=== PATIENT | male | born 1965 | race Caucasian/White ===

== ENCOUNTER 2017-11-25 17:24 | Emergency (ER) | payer BC ==
--- NOTE | 2017-11-25 18:35 | Emergency Department Record ---
History of Present Illness - General Chief Complaint: Animal Bite Stated Complaint: LACERATION Time Seen by Provider: 11/25/17 18:02 Source: Patient Mode of Arrival: Ambulatory Limitations: No limitations - History of Present Illness Initial Comments: pt was bitten by a cat on r index finger. pt is already on abx for cat bite last week. he still has 10 days left of abx. his tetnus is utd. the lac is bleeding heavily MD Complaint: Animal bite Onset/Timin -: Minutes(s) Left: Hand Animal: Cat Description: Household pet, Immunizations UTD Mechanism: Bite, Scratch, Contact with mucous membranes Pain Description: Sharp Severity scale (1-10): 2 Associated Symptoms: Bleeding Treatments Prior to Arrival: Pressure - Related Data Patient Tetanus UTD (within 5 yrs): Yes Home Medications Medication Instructions Recorded Confirmed Last Taken Atenolol 100 mg PO DAILY 11/25/17 11/25/17 11/25/17 Olmesartan Medoxomil [Benicar] 40 mg PO DAILY 11/25/17 11/25/17 11/25/17 Olmesartan/Hydrochlorothiazide 1 each PO DAILY 11/25/17 11/25/17 11/25/17 [Olmesartan-Hctz 40-12.5 mg Tab] Allergies Allergy/AdvReac Type Severity Reaction Status Date / Time No Known Drug Allergies Allergy Verified 11/25/17 17:29 Travel Screening - Travel/Exposure Within Last 30 Days Have you traveled within the last 30 days?: No Review of Systems Reviewed: No additional complaints except as noted below Constitutional: Reports: As per HPI. Denies: Chills, Fever, Malaise, Night sweats, Weakness, Weight change Eyes: Reports: As per HPI. Denies: Eye discharge, Eye pain, Photophobia, Vision change ENT: Reports: As per HPI. Denies: Congestion, Dental pain, Ear pain, Epistaxis , Hearing loss, Throat pain Respiratory: Reports: As per HPI. Denies: Cough, Dyspnea, Hemoptysis, Stridor, Wheezes Cardiovascular: Reports: As per HPI. Denies: Arrhythmia, Chest pain, Dyspnea on exertion, Edema, Murmurs, Orthopnea, Palpitations, Paroxysmal nocturnal dyspnea, Rheumatic Fever, Syncope Endocrine: Reports: As per HPI. Denies: Fatigue, Heat or cold intolerance, Polydipsia, Polyuria Gastrointestinal: Reports: As per HPI. Denies: Abdominal pain, Constipation, Diarrhea, Hematemesis, Hematochezia, Melena, Nausea, Vomiting Genitourinary: Reports: As per HPI. Denies: Dysuria, Frequency, Hematuria, Incontinence, Retention, Testicular pain, Testicular mass, Urgency Musculoskeletal: Reports: As per HPI. Denies: Arthralgia, Back pain, Gout, Joint swelling, Myalgia, Neck pain Skin: Reports: As per HPI. Denies: Bruising, Change in color, Change in hair/ nails, Lesions, Pruritus, Rash Neurological: Reports: As per HPI. Denies: Abnormal gait, Confusion, Headache, Numbness, Paresthesias, Seizure, Tingling, Tremors, Vertigo, Weakness Psychiatric: Reports: As per HPI. Denies: Anxiety, Auditory hallucinations, Depression, Homicidal thoughts, Suicidal thoughts, Visual hallucinations Hematological/Lymphatic: Reports: As per HPI. Denies: Anemia, Blood Clots, Easy bleeding, Easy bruising, Swollen glands Past Medical History - SOCIAL HISTORY Smoking Status: Never smoker Alcohol Use: Occasional Drug Use: None - RESPIRATORY Hx Respiratory Disorders: No - CARDIOVASCULAR Hx Cardio Disorders: Yes Hx Cardiac Cath: Yes (2 stents) Hx Hypertension: Yes - NEURO Hx Neuro Disorders: No - GI Hx GI Disorders: No - Hx Genitourinary Disorders: No - ENDOCRINE Hx Endocrine Disorders: No - MUSCULOSKELETAL Hx Musculoskeletal Disorders: No - PSYCH Hx Psych Problems: No - HEMATOLOGY/ONCOLOGY Hx Hematology/Oncology Disorders: No Family Medical History Any Significant Family History?: Yes Hx Heart Disease: Father, Mother Physical Exam - General General Appearance: Alert, Oriented x3, Cooperative, Mild distress - Head Head exam: Normal inspection - Eye Eye exam: Normal appearance, PERRL, EOMI Pupils: Normal accommodation - ENT ENT exam: Normal exam, Mucous membranes moist, Normal external ear exam, Normal orophraynx Ear exam: Normal external inspection. negative: External canal tenderness Nasal Exam: Normal inspection. negative: Discharge, Sinus tenderness Mouth exam: Normal external inspection, Tongue normal Teeth exam: Normal inspection. negative: Dental caries Throat exam: Normal inspection. negative: Tonsillar erythema, Tonsillar exudate - Neck Neck exam: Normal inspection, Full ROM. negative: Tenderness - Respiratory Respiratory exam: Normal lung sounds bilaterally. negative: Respiratory distress - Cardiovascular Cardiovascular Exam: Regular rate, Normal rhythm, Normal heart sounds - GI/Abdominal GI/Abdominal exam: Soft, Normal bowel sounds. negative: Tenderness - Rectal Rectal exam: Deferred - exam: Deferred - Extremities Extremities exam: Normal inspection, Full ROM, Normal capillary refill. negative: Tenderness Image of Hand: 1 - 3cm lac bleeding - Back Back exam: Reports: Normal inspection, Full ROM. Denies: Muscle spasm, Rash noted, Tenderness - Neurological Neurological exam: Alert, Normal gait, Oriented X3, Reflexes normal - Psychiatric Psychiatric exam: Normal affect, Normal mood - Skin Skin exam: Dry, Intact, Normal color, Warm Course Vital Signs 11/25/17 17:32 Temperature 97.7 F Pulse Rate 94 H Respiratory 18 Rate Blood Pressure 119/73 Pulse Ox 96 - Reevaluation(s) Reevaluation #1: 11/25/17 18:38 pt was adament that he needed stitches because he couldnt work if it was bleeding. he was educated to the high liklihood of infection but he still wanted it stitched. he is still taking abx from the last cat bite, he still has 10 more days of augmentin Disposition Disposition: Discharge Disposition: Home, Self-Care Return To Work/School Note Provided: No Condition: (1) Good Instructions: Animal Bite (ED), Care For Your Stitches (ED) Additional Instructions: follow up with family doctor. return sooner if worse. stitches out in 7-8 days. return if any symptoms of infection. continue augmentin Quality - Quality Measures Quality Measures: N/A - Blood Pressure Screening Does Patient Have Any of the Following: No Blood Pressure Classification: Normal BP Reading Systolic Measurement: 119 Diastolic Measurement: 73 Screening for High Blood Pressure: < Normal BP, F/U Not Required > [[id number]] Laceration - Other - Time Out Informed consent:: Informed consent obtained Confirmed first & last name, , procedure, correct site?: Yes - Location Location of laceration:: Right Laceration located on:: Finger Laceration digit detail:: 2nd Length of laceration:: 3 Length of laceration:: cm - Clean and Prep Laceration cleaning method:: Copious Irrigation Laceration cleaning agent:: Normal Saline, Shur Clens - Local Anesthetic Lidocaine used:: 1% Lidocaine dose:: 2 mL - Medication Medicated for procedure?: No - Procedural Detail Tissue detail:: Torn Foreign body in the wound?: No Undermining was preformed?: No Stent applied?: No Jack applied?: No Retention suture(s) applied?: No Skin suture pattern:: Interrupted Suture material/size:: 5-0: Nylon Number of skin sutures:: 2 - Post Procedural Detail Complications:: No Procedure Tolerated by Patient:: Well
== END 2017-11-25 18:58 | disposition home or self-care (01) ==
LOC: ER 17:24
DX: S61.210A Laceration without foreign body of right index finger without damage to nail, initial encounter (principal); W55.01XA Bitten by cat, initial encounter
CPT/HCPCS: 12042; 99283